=== PATIENT | female | born 1985 ===

== ENCOUNTER 2016-10-26 07:59 | Emergency (ER) | payer MEDICAID, OTHER ==
[2016-10-26 08:14] VITALS: BMI 29.2
[2016-10-26] MEDS ORDERED: Sodium Chloride 0.9% 500 ML IV STA (08:45)
[2016-10-26] MEDS ORDERED: Famotidine 20mg/50ml 20 MG/50 ML BAG IVPB STA (08:45)
[2016-10-26] MEDS ORDERED: Alum-Mag Hydrox-Simethicone Susp (30 mL) PO STA (08:45)
[2016-10-26 09:27] LABS: ADD MANUAL DIFF? NO
[2016-10-26 09:30] LABS: GRAN # 4.68 (1.4-6.5); GRAN % 90.7 % (50.0-68.0); HEMATOCRIT 28.2 % (36.0-48.0); LYMPH # 0.3 (1.2-3.4); LYMPH % 5.6 % (22.0-35.0); MEAN CORPUSCULAR HEMOGLOBIN 25.3 pg (25.0-35.0); MEAN CORPUSCULAR HGB CONC 33.7 g/dl (31.0-37.0); MEAN PLATELET VOLUME 9.1 fl (7.0-11.0); MONO # 0.2 (0.1-0.6); MONO % 3.7 % (1.0-6.0); PLATELET COUNT 193 10^3/uL (120.0-450.0); WHITE BLOOD COUNT 5.2 10^3/ul (4.5-11.0)
--- NOTE | 2016-10-26 09:42 | ED PDOC ---
Arrival/HPI - General Chief Complaint: Abdominal Pain Time Seen by Provider: 10/26/16 08:09 Historian: Patient - History of Present Illness Narrative History of Present Illness (Text): 10/26/16 08:40 A 31 year old female, whose past medical history includes SLE, anxiety and migraines, presents to the emergency department complaining of epigastric discomfort. The patient reports this [place] felt this uncomfortably feeling from the in the epigastric region. She describes the pain more as a achy feeling rather than pain. Discomfort is associated with shortness of breath and nausea. Patient notes after getting the uncomfortably sensation in the abdominal she began to feel nervous and anxious. Patient currently notes nausea and epigastric discomfort but states the shortness of breath has resolved. Patient denies any fever or other complaints at this time. Patient mentions she was recently admitted to [facility] for Lupus and she was discharged this morning, for which she is scheduled to follow up with Dr. Deleon PMD: None Time/Duration: 1-3 hours Symptom Onset: Sudden Symptom Course: Other Quality: Aching Activities at Onset: Light Context: Walking Past Medical History - Provider Review Nursing Documentation Reviewed: Yes - Infectious Disease Hx of Infectious Diseases: None - Tetanus Immunization Tetanus Immunization: Unknown - Cardiac Hx Cardiac Disorders: Yes Hx Hypertension: Yes - Pulmonary Hx Respiratory Disorders: No Hx Tuberculosis: No - Neurological Hx Neurological Disorder: Yes Hx Migraine: Yes - HEENT Hx HEENT Disorder: No - Renal Hx Renal Disorder: Yes - Endocrine/Metabolic Hx Endocrine Disorders: Yes Hx Systemic Lupus Erythematosus: Yes - Hematological/Oncological Hx Blood Disorders: Yes - Integumentary Hx Dermatological Disorder: No - Musculoskeletal/Rheumatological Hx Musculoskeletal Disorders: No - Gastrointestinal Hx Gastrointestinal Disorders: Yes Hx Pancreatitis: Yes - Genitourinary/Gynecological Hx Genitourinary Disorders: No Hx Sexually Transmitted Diseases: No - Psychiatric Hx Psychophysiologic Disorder: Yes Hx Anxiety: Yes Hx Depression: Yes Hx Substance Use: No - Surgical History Other/Comment: Biopsy of neck, 09/21/14. EXPLOR LAP RIGHT SALPHINGOOPORECTOMY. PARA AORTIC LYMPH NODE BIOPSY. PARTIAL OMENTECTOMY. - Anesthesia Hx Anesthesia: Yes - Suicidal Assessment Feels Threatened In Home Enviroment: No Family/Social History - Physician Review Nursing Documentation Reviewed: Yes Family/Social History: Unknown Family HX Smoking Status: Former Smoker Hx Alcohol Use: No Hx Substance Use: No Allergies/Home Meds Allergies/Adverse Reactions: Allergies No Known Allergies Allergy (Verified 10/26/16 08:13) Home Medications: Home Meds Medication Instructions Recorded Confirmed Atovaquone [Mepron] 10 ml PO DAILY 10/26/16 10/26/16 Carvedilol [Coreg] 12.5 mg PO BID 10/26/16 10/26/16 Cholecalciferol (Vitamin D3) 2,000 iu PO DAILY 10/26/16 10/26/16 [Vitamin D3] Ferrous Gluconate [Ferrous 324 mg PO TID 10/26/16 10/26/16 Gluconate] Hydroxychloroquine Sulfate 200 mg PO BID 10/26/16 10/26/16 [Plaquenil] Isosorbide Mononitrate [Isosorbide 30 mg PO DAILY 10/26/16 10/26/16 Mononitrate ER] Losartan [Cozaar] 25 mg PO DAILY 10/26/16 10/26/16 Prednisone [Deltasone] 60 mg PO DAILY 10/26/16 10/26/16 Sennosides/Docusate Sodium [Stool 1 tab PO BID PRN 10/26/16 10/26/16 Softener-Laxative Tablet] amLODIPine [Norvasc] 10 mg PO DAILY 10/26/16 10/26/16 Review of Systems - Physician Review All systems were reviewed & negative as marked: Yes - Review of Systems Constitutional: absent: Fevers Respiratory: SOB (but has resolved) Gastrointestinal: Abdominal Pain Psychiatric: Anxiety Physical Exam Vital Signs Reviewed: Yes Vital Signs Temp Pulse Resp BP Pulse Ox 10/26/16 12:00 98.9 F 89 18 144/79 99 10/26/16 10:00 98.5 F 78 18 138/78 98 10/26/16 08:15 97.9 F 62 16 162/98 H 95 Temperature: Afebrile Blood Pressure: Hypertensive Pulse: Regular Respiratory Rate: Normal Appearance: Positive for: Well-Appearing, Non-Toxic, Comfortable Pain Distress: None Mental Status: Positive for: Alert and Oriented X 3 - Systems Exam Head: Present: Atraumatic, Normocephalic Pupils: Present: PERRL Extroacular Muscles: Present: EOMI Conjunctiva: Present: Normal Mouth: Present: Moist Mucous Membranes Neck: Present: Normal Range of Motion Respiratory/Chest: Present: Clear to Auscultation, Good Air Exchange. No: Respiratory Distress, Accessory Muscle Use Cardiovascular: Present: Regular Rate and Rhythm, Normal S1, S2. No: Murmurs Abdomen: Present: Tenderness (mild epigastric tenderness with palpation. Neg Hernandez's Sign), Normal Bowel Sounds, Guarding, Feeding Tubes. No: Distention, Peritoneal Signs, Rebound, McBurney's Point Tender, Rovsing's Sign Present Back: Present: Normal Inspection Upper Extremity: Present: Normal Inspection. No: Cyanosis, Edema Lower Extremity: Present: Normal Inspection. No: Edema Neurological: Present: GCS=15, CN II-XII Intact, Speech Normal Skin: Present: Warm, Dry, Normal Color. No: Rashes Psychiatric: Present: Alert, Oriented x 3, Normal Insight, Normal Concentration Medical Decision Making ED Course and Treatment: 10/26/16 08:40 Impression: A 31 year old female with epigastric discomfort. Differential Diagnosis include but are not limited to: GERD vs. Gastritis vs. Anxiety Plan: -- EKG -- Chest X-ray -- Labs -- Maalox, Pecpid and IV Fluids -- Reassess and disposition Prior Visits: Notes and results from previous visits were reviewed. The patient last presented to the emergency department on 03/05/15 for evaluation of suprapubic pain. Progress Notes: EKG: Ordered, reviewed, and independently interpreted the EKG. Rate : 63 BPM Rhythm : NSR Interpretation : No ST-segment elevations or depressions, no T-wave inversions, normal intervals. 10/26/16 10:10 Abdomen ultrasound ordered. 10/26/16 11:12 Abdomen Ultrasound: Creator : Matty Andrews MD COMPARISON: None. FINDINGS: LIVER: Measures cm. Normal echogenicity of the liver parenchyma. No mass. No intrahepatic bile duct dilatation. GALLBLADDER: Cholelithiasis COMMON BILE DUCT: Measures mm. No stones. No dilatation. PANCREAS: Unremarkable as visualized. No mass. No ductal dilatation. RIGHT KIDNEY: Measures cm. Normal echogenicity. No calculus, mass, or hydronephrosis. LEFT KIDNEY: Resected. SPLEEN: Normal in size and contour. No mass. AORTA: No aneurysmal dilatation. IVC: Unremarkable. OTHER FINDINGS: None. IMPRESSION: Cholelithiasis. Left nephrectomy. CXR negative. US negatitive for Cholecystitis. Lipase similar elevation to previous visit. Patient no longer having pain. Abdomen is soft, NT, ND, BSx4. Patient is tolerating PO fluids in the ED. No SOB. She feels comfortable going home. I advised her to return to the ED if symptoms worsen or any other concern. She already has follow up set up since her last discharge today from [facility]. She has the script for follow up blood work as well. - Lab Interpretations Lab Results: 10/26/16 09:26 10/26/16 09:26 Lab Results 10/26/16 09:26: Sodium 136, Potassium 4.6, Chloride 104, Carbon Dioxide 27, Anion Gap 10, BUN 38 H, Creatinine 1.2, Est GFR ( Amer) > 60, Est GFR ( Non-Af Amer) 52, Random Glucose 106, Calcium 8.7, Total Bilirubin 0.7, AST 26, ALT 45, Alkaline Phosphatase 70, Total Protein 6.8, Albumin 3.3, Globulin 3.5, Albumin/Globulin Ratio 0.9 L, Lipase 306 H 10/26/16 09:26: WBC 5.2, RBC 3.76, Hgb 9.5 L, Hct 28.2 L, MCV 75.0 L, MCH 25.3, MCHC 33.7, RDW 14.0, Plt Count 193, MPV 9.1, Gran % 90.7 H, Lymph % (Auto) 5.6 L , Bollinger % (Auto) 3.7, Eos % (Auto) 0.0 L, Baso % (Auto) 0.0, Gran # 4.68, Lymph # 0.3 L, Bollinger # 0.2, Eos # 0.0, Baso # 0.00 I have reviewed the lab results: Yes - RAD Interpretation Radiology Orders: 10/26/16 08:45 CXR [CHEST PORTABLE] [RAD] Stat 10/26/16 10:10 ABDOMEN COMPLETE [US] Stat - Medication Orders Current Medication Orders: Discontinued Medications Al Hydrox/Mg Hydrox/Simethicone (Maalox Plus 30 Ml) 30 ml PO STAT STA Stop: 10/26/16 08:46 Last Admin: 10/26/16 09:23 Dose: 30 ml Famotidine (Pepcid 20mg/50ml Premix) 20 mg in 50 mls @ 100 mls/hr IVPB STAT STA Stop: 10/26/16 09:14 Last Admin: 10/26/16 09:23 Dose: 100 mls/hr Sodium Chloride (Sodium Chloride 0.9%) 500 mls @ 999 mls/hr IV .Q31M STA Stop: 10/26/16 09:15 Last Admin: 10/26/16 09:23 Dose: 999 mls/hr Ketorolac Tromethamine (Toradol) 30 mg IVP STAT STA Stop: 10/26/16 10:11 Last Admin: 10/26/16 12:27 Dose: 30 mg Ondansetron HCl (Zofran Inj) 4 mg IVP STAT STA Stop: 10/26/16 09:01 Last Admin: 10/26/16 09:23 Dose: 4 mg - Scribe Statement The provider has reviewed the documentation as recorded by the Kseniaibsharyn Holloway Provider Scribe Attestation: All medical record entries made by the Scribe were at my direction and personally dictated by me. I have reviewed the chart and agree that the record accurately reflects my personal performance of the history, physical exam, medical decision making, and the department course for this patient. I have also personally directed, reviewed, and agree with the discharge instructions and disposition. Disposition/Present on Arrival - Present on Arrival Any Indicators Present on Arrival: No History of DVT/PE: No History of Uncontrolled Diabetes: No Urinary Catheter: No History of Decub. Ulcer: No History Surgical Site Infection Following: None - Disposition Have Diagnosis and Disposition been Completed?: Yes Diagnosis: Pancreatitis, Biliary colic Disposition: HOME/ ROUTINE Disposition Time: 13:02 Patient Plan: Discharge Condition: IMPROVED Discharge Instructions (ExitCare): Pancreatitis (ED), Biliary Colic (ED) Additional Instructions: Ms Pollack, thank you for letting us take care of you today. Your provider was Dr. Esteban. You were treated for Biliary Colic, Pancreatitis. The emergency medical care you received today was directed at your acute symptoms. If you were prescribed any medication, please fill it and take as directed. It may take several days for your symptoms to resolve. Return to the Emergency Department if your symptoms worsen, do not improve, or if you have any other problems. Please contact your doctor or call one of the physicians/clinics you have been referred to that are listed on the Patient Visit Information form that is included in your discharge packet. Bring any paperwork you were given at discharge with you along with any medications you are taking to your follow up visit. Our treatment cannot replace ongoing medical care by a primary care provider (PCP) outside of the emergency department. Thank you for allowing the [facility] team to be part of your care today. If you had an X-Ray or CT scan: A Radiologist will review the ED reading if any change in treatment is needed we will contact you. If you had a blood, urine, or wound culture: It will take several days for the results, if any change in treatment is needed we will contact you. If you had an STI test: It will take 48 hours for the results. Please call after 1 week if you have not heard back. Prescriptions: Famotidine [Pepcid] 20 mg PO DAILY #30 tab Ondansetron ODT [Zofran ODT] 4 mg PO Q6 #14 odt Referrals: [facility], [Non-Staff] - Follow up with primary Forms: [employer] ([place]ian), WORK NOTE
[2016-10-26 09:48] LABS: ALB/GLOB RATIO 0.9 (1.1-1.8); ALKALINE PHOSPHATASE 70 U/L (38-133); ALT/SGPT 45 U/L (7-56); AST/SGOT 26 U/L (15-39); BILIRUBIN,TOTAL 0.7 mg/dL (0.2-1.3); BLOOD UREA NITROGEN 38 mg/dL (7-21); CALCIUM 8.7 mg/dL (8.4-10.5); CARBON DIOXIDE 27 mmol/L (21-33); CHLORIDE 104 mmol/L (98-107); GFR AFRICAN-AMERICAN > 60; GLUCOSE,RANDOM 106 mg/dL (70-110); LIPASE 306 U/L (23-300); POTASSIUM 4.6 mmol/L (3.6-5.0); SODIUM 136 mmol/L (132-148); TOTAL PROTEIN 6.8 g/dL (5.8-8.3)
--- NOTE | 2016-10-26 11:12 | US ---
HISTORY: biliary colic vs cholecystitis COMPARISON: None. TECHNIQUE: Sonographic evaluation of the abdomen. FINDINGS: LIVER: Measures cm. Normal echogenicity of the liver parenchyma. No mass. No intrahepatic bile duct dilatation. GALLBLADDER: Cholelithiasis COMMON BILE DUCT: Measures mm. No stones. No dilatation. PANCREAS: Unremarkable as visualized. No mass. No ductal dilatation. RIGHT KIDNEY: Measures cm. Normal echogenicity. No calculus, mass, or hydronephrosis. LEFT KIDNEY: Resected. SPLEEN: Normal in size and contour. No mass. AORTA: No aneurysmal dilatation. IVC: Unremarkable. OTHER FINDINGS: None. IMPRESSION: Cholelithiasis. Left nephrectomy.
[2016-10-26 12:16] VITALS: RESP 18
[2016-10-26 13:02] VITALS: BP 144/79; PULSE 89; TEMP 98.9; O2SAT 99
--- NOTE | 2016-10-26 15:14 | RAD ---
PROCEDURE: CHEST RADIOGRAPH, 1 VIEW HISTORY: sob COMPARISON: None available. FINDINGS: LUNGS: Clear. PLEURA: No pneumothorax or pleural fluid seen. CARDIOVASCULAR: Normal. OSSEOUS STRUCTURES: No significant abnormalities. VISUALIZED UPPER ABDOMEN: Normal. OTHER FINDINGS: None. IMPRESSION: No active disease.
--- NOTE | 2016-10-26 18:50 | CARD ---
APPROVED REPORT EKG Measurement Heart [id number] <Conclusion> Normal sinus rhythm Nonspecific ST abnormality Abnormal ECG
== END 2016-10-26 13:03 | disposition home or self-care (01) ==
LOC: ED 07:59
DX: K85.90 Acute pancreatitis without necrosis or infection, unspecified (principal); K80.50 Calculus of bile duct without cholangitis or cholecystitis without obstruction; I10 Essential (primary) hypertension; Z87.891 Personal history of nicotine dependence
CPT/HCPCS: 71010; 76700; 80053; 83690; 85025; 93005; 96365; 96375; 99284; J1885; J2405; J7040